=== PATIENT | male | born 1995 | race Two or more races ===

== ENCOUNTER 2021-10-11 11:22 | Emergency (ER) | payer OTHER ==
[~2021-10-11] VITALS: Ht 175.3 cm; Wt 108.0 kg
[2021-10-11 12:32] LABS: Urine Bacteria FEW /hpf (None Seen); Urine Blood 3+ /uL (Negative); Urine Specific Gravity 1.013 (1.001-1.035); Urine WBC 148 /hpf (0 - 3); Urine WBC Clumps PRESENT /hpf (None Seen)
[2021-10-11] MEDS ORDERED: IBUPROFEN 800 MG TAB PO ONE (15:45)
[2021-10-11] MEDS ORDERED: cefTRIAXone SOD 1,000 MG VL IM ONE (15:45)
[2021-10-11] MEDS ORDERED: LIDOCAINE 1% HCL (LOCAL ANESTH.) INJ 20ML MDV ONE (15:50)
[2021-10-11 16:00] VITALS: BP 138/87
== END 2021-10-11 16:07 | disposition home or self-care (01) ==
LOC: ER 11:22
DX: N39.0 Urinary tract infection, site not specified (principal)
CPT/HCPCS: 74176; 81001; 96372; 99284; J0696; J2001

== ENCOUNTER 2024-09-30 00:36 | Emergency (ER) | payer MEDICAID, OTHER | END 2024-09-30 01:31 | disposition left against medical advice (07) | LOC: ER 00:36 | DX: S60.229A Contusion of unspecified hand, initial encounter (principal); X58.XXXA Exposure to other specified factors, initial encounter; Y93.89 Activity, other specified; Y92.89 Other specified places as the place of occurrence of the external cause; Y99.8 Other external cause status; Z53.21 Procedure and treatment not carried out due to patient leaving prior to being seen by health care provider ==